=== PATIENT | male | born 1985 | race Caucasian/White ===

== ENCOUNTER 2017-05-02 12:53 | Inpatient (IN) | payer SELFPAY ==
[~2017-05-02] VITALS: Ht 175.3 cm; Wt 101.5 kg
[2017-05-02 13:24] VITALS: BP 124/79; PULSE 83; RESP 18; TEMP 98.1; O2SAT 97
[2017-05-02] MEDS ORDERED: MAGNESIUM HYDROXIDE SUSP 30 ML CUP PO PRN (15:15)
[2017-05-02] MEDS ORDERED: BENZTROPINE MESYLATE 2 MG/2 ML VIAL IM PRN (15:15)
[2017-05-02] MEDS ORDERED: BENZTROPINE MESYLATE 1 MG TAB PO PRN (15:15)
[2017-05-02] MEDS ORDERED: LORazepam 2 MG/ML VIAL IM PRN (15:15)
[2017-05-02] MEDS ORDERED: ALUMINUM/MAGNESIUM/SIMETH 30 ML CUP PO PRN (15:15)
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
[2017-05-02] MEDS ORDERED: POTASSIUM CHLORIDE 20 MEQ CONTROLLED RELEASE TAB PO ONE (17:15)
[2017-05-02] MEDS ORDERED: QUEtiapine FUMARATE 100 MG TAB PO SCH (21:00)
[2017-05-02] MEDS ORDERED: traZODone HCL 50 MG TAB PO PRN (21:00)
[2017-05-02 21:13] LABS: AMPHETAMINE, URINE NEG (NEG); BARBITURATES, URINE NEG (NEG); COCAINE, URINE NEG (NEG)
[2017-05-02] MEDS: LORazepam 1 MG TAB PO PRN (21:44)
[2017-05-02] MEDS: ZOLPIDEM TARTRATE 5 MG TAB PO PRN (21:44)
[2017-05-03 06:15] VITALS: BP 120/70; PULSE 80; RESP 16; TEMP 98.3; O2SAT 97
[2017-05-03] MEDS: NICOTINE 21 MG/24 HR PATCH T-DERMAL SCH (09:00)
[2017-05-03] MEDS: DIVALPROEX DR 500 MG TABEC PO SCH ×2 (09:42→20:10)
[2017-05-03 11:36] LABS: AUTOMATED NEUTROPHIL # 2.5 TH/MM3 (1.8-7.7); BASOPHIL % 0.4 % (0.0-2.0); EOSINOPHIL % 0.9 % (0.0-4.0); HEMATOCRIT 42.9 % (39.0-51.0); HEMO FLAGS DIFF FINAL; LYMPH % 38.3 % (9.0-44.0); LYMPHOCYTE # 1.8 TH/MM3 (1.0-4.8); MEAN CELL VOLUME 82.5 FL (80.0-100.0); MEAN CORPUSCULAR HEMOGLOBIN 28.3 PG (27.0-34.0); MEAN CORPUSCULAR HGB CONC 34.4 % (32.0-36.0); MONO % 7.2 % (0.0-8.0); NEUT % 53.2 % (16.0-70.0); PLATELET COUNT 287 TH/MM3 (150-450); RED CELL DISTRIBUTION WIDTH 13.1 % (11.6-17.2); WHITE BLOOD COUNT 4.7 TH/MM3 (4.0-11.0)
[2017-05-03 11:56] LABS: ALT (GPT) 33 U/L (12-78); ANION GAP 6 MEQ/L (5-15); AST (GOT) 27 U/L (15-37); BICARBONATE 27.8 MEQ/L (21.0-32.0); BLOOD UREA NITROGEN 11 MG/DL (7-18); CHLORIDE 105 MEQ/L (98-107); GLOMERULAR FILTRATION RATE 112 ML/MIN (>89); MAGNESIUM 2.2 MG/DL (1.5-2.5); POTASSIUM 3.4 MEQ/L (3.5-5.1); SODIUM (NA) 139 MEQ/L (136-145)
[2017-05-03 11:59] LABS: ALKALINE PHOSPHATASE 41 U/L (45-117); HDL CHOLESTEROL 21.7 MG/DL (40.0-60.0); LDL CHOLESTEROL 119 MG/DL (0-99); TOTAL BILIRUBIN ADULT 0.4 MG/DL (0.2-1.0)
--- NOTE | 2017-05-03 12:30 | HHI.PYPN ---
Subjective Remarks Patient seen and examined with nurse. Chart reviewed. Case discussed with nursing staff who reports the patient remained seclusive and depressed. On my examination today, patient remains fairly dysphoric. When I ask how he is doing he says "I'm alive." He says that his appetite is poor. He endorses ongoing feelings of worthlessness and anhedonia. He denies any active suicidal ideation. Denies side effects from medications. No physical complaints besides some mild nausea. Review of Systems Except as stated in HPI: all other systems reviewed are Neg Objective Alert: Yes [place]: Person, Place, Date, Situation Mood: Depressed Affect: Restricted Memory Intact: Comment (intact) Hallucinations: Other (no AVH) Delusions: No Delusion Type: Other (no delusions) Suicidal: Ideation (denies SI) Homicidal: Ideation (no HI) Insight/Judgment Fair Remarks Thought process linear. No motor abnormalities noted. Speech remains a little slow with increased speech latency. Grooming and hygiene fair. Labs Test 05/02/17 05/03/17 20:35 11:03 Urine Opiates Screen NEG Urine Barbiturates Screen NEG Urine Amphetamines Screen NEG Urine Benzodiazepines Screen NEG Urine Cocaine Screen NEG Urine Cannabinoids Screen POS White Blood Count 4.7 TH/MM3 Red Blood Count 5.20 MIL/MM3 Hemoglobin 14.7 GM/DL Hematocrit 42.9 % Mean Corpuscular Volume 82.5 FL Mean Corpuscular Hemoglobin 28.3 PG Mean Corpuscular Hemoglobin 34.4 % Concent Red Cell Distribution Width 13.1 % Platelet Count 287 TH/MM3 Mean Platelet Volume 9.1 FL Neutrophils (%) (Auto) 53.2 % Lymphocytes (%) (Auto) 38.3 % Monocytes (%) (Auto) 7.2 % Eosinophils (%) (Auto) 0.9 % Basophils (%) (Auto) 0.4 % Neutrophils # (Auto) 2.5 TH/MM3 Lymphocytes # (Auto) 1.8 TH/MM3 Monocytes # (Auto) 0.3 TH/MM3 Eosinophils # (Auto) 0.0 TH/MM3 Basophils # (Auto) 0.0 TH/MM3 CBC Comment DIFF FINAL Differential Comment Sodium Level 139 MEQ/L Potassium Level 3.4 MEQ/L Chloride Level 105 MEQ/L Carbon Dioxide Level 27.8 MEQ/L Anion Gap 6 MEQ/L Blood Urea Nitrogen 11 MG/DL Creatinine 0.81 MG/DL Estimat Glomerular Filtration 112 ML/MIN Rate Random Glucose 68 MG/DL Calcium Level 8.7 MG/DL Magnesium Level 2.2 MG/DL Total Bilirubin 0.4 MG/DL Aspartate Amino Transf 27 U/L (AST/SGOT) Alanine Aminotransferase 33 U/L (ALT/SGPT) Alkaline Phosphatase 41 U/L Total Protein 7.2 GM/DL Albumin 3.1 GM/DL Triglycerides Level 190 MG/DL Cholesterol Level 179 MG/DL LDL Cholesterol 119 MG/DL HDL Cholesterol 21.7 MG/DL Cholesterol/HDL Ratio 8.24 RATIO Labs reviewed. Urine toxicology positive for cannabinoids. LFTs within normal limits. CBC unremarkable. Vitals/IOs Vital Signs Date Time Temp Pulse Resp B/P Pulse Ox O2 Delivery O2 Flow Rate FiO2 05/03/17 06:15 98.3 80 16 120/70 97 Intake and Output 05/02/17 05/02/17 05/03/17 08:00 16:00 00:00 Intake Total 240 ml Balance 240 ml Assessment & Plan Problem List: (1) Bipolar disorder ICD Code: F31.9 (2) Use of cannabis ICD Code: F12.90 Assessment & Plan Titrate Seroquel to 100 mg at bedtime for mood stabilization. Continue Depakote as ordered and plan to check a Depakote level over the weekend. Hospitalist input noted and appreciated. Continue to monitor on the inpatient unit. Continue other medications and care as ordered. Justification for Cont. Inpt. Medication changes in process. Monitoring for impairments in safety. High risk for decompensation in a less restrictive environment. Discharge Planning Pending psychiatric stabilization. I anticipate patient will require approximately an additional 7 inpatient days at this point. Request HC Surrog/Guard Advoc?: No Problem Qualifiers (1) Bipolar disorder: Qualified Code: F31.4 - Bipolar disorder, current episode depressed, severe, without psychotic features Kody Cho MD May 03, 2017 12:29
[2017-05-03] MEDS ORDERED: POTASSIUM CHLORIDE 10 MEQ CONTROLLED RELEASE TAB PO ONE (13:00)
--- NOTE | 2017-05-03 13:36 | PD.CONS ---
HPI Service [facility] Hospitalists Consult Requested By Reason for Consult Hx of HIV, and FU NSAID overdose Primary Care Physician Unknown Diagnoses: (1) HIV (human immunodeficiency virus infection) (2) Bipolar disorder History of Present Illness Written by MARIA Rivas acting as scribe for [Nguyen] on 05/03/17 at 12:20. 31 y/o with a history of HIV, depression and anxiety was transferred to [place] from [facility] following an overdose of Tylenol and Motrin. Patient states he recently moved here from [place] and was going through some issues and tried to commit suicide. He states he use to take HIV medications in [place] awhile ago but can not afford them. He denies any chest pain, sob, fever or chills. He does complain of having nasal congestion and pain in his ears from a recent cold. Since hospital admission he had had a lack of appetite because nothing tastes good with associated nausea, but states he is drinking fine. Review of Systems Constitutional: COMPLAINS OF: Change in appetite, DENIES: Fever, Chills Ears, nose, mouth, throat: COMPLAINS OF: Running Nose Respiratory: DENIES: Cough, Sputum production, Shortness of breath Cardiovascular: DENIES: Chest pain, Lower Extremity Edema Gastrointestinal: COMPLAINS OF: Nausea, DENIES: Abdominal pain, Vomiting Genitourinary: DENIES: Hematuria, Dysuria Musculoskeletal: DENIES: Back pain, Neck pain Integumentary: DENIES: Rash Neurologic: DENIES: Headache, Localized weakness Past Family Social History Allergies: Coded Allergies: Benadryl (Verified Allergy, Intermediate, 05/02/17) Past Medical History HIV Bipolar Depression Anxiety Past Surgical History Anal abscess drained 2014 Active Ordered Medications Current Medications Medications (Trade) Dose Ordered Sig/Arlene Route Start Time Stop Time Status Last Admin (Ativan) 1 mg Q6H PRN PO 05/02/17 15:15 05/02/17 21:44 (Ativan Inj) 1 mg Q6H PRN IM 05/02/17 15:15 (Cogentin) 1 mg Q12H PRN PO 05/02/17 15:15 (Cogentin Inj) 1 mg Q12H PRN IM 05/02/17 15:15 (Milk Of Magnesia Liq) 30 ml DAILY PRN PO 05/02/17 15:15 (Mag-Al Plus Susp Liq) 30 ml Q6H PRN PO 05/02/17 15:15 (Habitrol 21 Mg Patch.24 Hr) 1 patch DAILY T-DERMAL 05/03/17 09:00 Miscellaneous Information 1 HS T-DERMAL 05/03/17 21:00 (Depakote Dr) 500 mg BID PO 05/03/17 09:00 05/03/17 09:42 (Ambien) 5 mg HS PRN PO 05/02/17 17:00 05/02/17 21:44 (SEROquel) 100 mg HS PO 05/03/17 21:00 Family History Mom: Breast CA Dad: DM, heart disease Social History Tobacco use: 1 PPD Alcohol use: denies Illicit drug use: Denies Physical Exam Vital Signs Vital Signs Date Time Temp Pulse Resp B/P Pulse Ox O2 Delivery O2 Flow Rate FiO2 05/03/17 06:15 98.3 80 16 120/70 97 05/02/17 13:24 98.1 83 18 124/79 97 Physical Exam GENERAL: This is a well-nourished, well-developed patient, in no apparent distress. SKIN: No rashes, ecchymoses or lesions. Cool and dry. HEAD: Atraumatic. Normocephalic. No temporal or scalp tenderness. NECK: Trachea midline. No JVD or lymphadenopathy. CARDIOVASCULAR: Regular rate and rhythm without murmurs, gallops, or rubs. RESPIRATORY: Clear to auscultation. Breath sounds equal bilaterally. No wheezes , rales, or rhonchi. GASTROINTESTINAL: Abdomen soft, non-tender, nondistended. No hepato-splenomegaly , or palpable masses. No guarding. MUSCULOSKELETAL: Extremities without clubbing, cyanosis, or edema. No joint tenderness, effusion, or edema noted. No calf tenderness. NEUROLOGICAL: Awake and alert. Motor and sensory grossly within normal limits. Normal speech. Laboratory Laboratory Tests Test 05/02/17 05/03/17 20:35 11:03 Urine Opiates Screen NEG Urine Barbiturates Screen NEG Urine Amphetamines Screen NEG Urine Benzodiazepines Screen NEG Urine Cocaine Screen NEG Urine Cannabinoids Screen POS White Blood Count 4.7 Red Blood Count 5.20 Hemoglobin 14.7 Hematocrit 42.9 Mean Corpuscular Volume 82.5 Mean Corpuscular Hemoglobin 28.3 Mean Corpuscular Hemoglobin 34.4 Concent Red Cell Distribution Width 13.1 Platelet Count 287 Mean Platelet Volume 9.1 Neutrophils (%) (Auto) 53.2 Lymphocytes (%) (Auto) 38.3 Monocytes (%) (Auto) 7.2 Eosinophils (%) (Auto) 0.9 Basophils (%) (Auto) 0.4 Neutrophils # (Auto) 2.5 Lymphocytes # (Auto) 1.8 Monocytes # (Auto) 0.3 Eosinophils # (Auto) 0.0 Basophils # (Auto) 0.0 CBC Comment DIFF FINAL Differential Comment Sodium Level 139 Potassium Level 3.4 Chloride Level 105 Carbon Dioxide Level 27.8 Anion Gap 6 Blood Urea Nitrogen 11 Creatinine 0.81 Estimat Glomerular Filtration 112 Rate Random Glucose 68 Calcium Level 8.7 Magnesium Level 2.2 Total Bilirubin 0.4 Aspartate Amino Transf 27 (AST/SGOT) Alanine Aminotransferase 33 (ALT/SGPT) Alkaline Phosphatase 41 Total Protein 7.2 Albumin 3.1 Triglycerides Level 190 Cholesterol Level 179 LDL Cholesterol 119 HDL Cholesterol 21.7 Cholesterol/HDL Ratio 8.24 Result Diagram: 05/03/17 1103 05/03/17 1103 Assessment and Plan Problem List: (1) HIV (human immunodeficiency virus infection) ICD Code: Z21 Status: Acute (2) Bipolar disorder ICD Code: F31.9 Status: Acute Assessment and Plan 31 y/o with a history of HIV, depression and anxiety was transferred to [place] from [facility] following an overdose of Tylenol and Motrin. Patient states he recently moved here from [place] and was going through some issues and tried to commit suicide. He states he use to take HIV medications in [place] awhile ago but can not afford them. Bipolar disorder -Managed by psychiatry Tylenol and Motrin overdose Tylenol level at [facility] was 17.5 -Liver enzymes WNL -Cont to monitor HIV, chronic -Patient will need outpatient referral to Health department for medications. He was counseled on the need to be treated for his HIV. He reports that he could not afford his medications. I advised the patient that he would be able to get his medications through the health department if that is the case. DVT prophylaxis: Ambulation This note was transcribed by brenna [Lin Castro]. I, Dr. Preston Cedillo personally performed the history, physical exam, and medical decision making; and confirmed the accuracy of the information in the transcribed note. Authenticated by Dr. Preston Cedillo on 05/03/17 at 1220. Thank you for this consult. Will sign off. Please ensure the patient has a referral to the health department for HIV treatment on discharge. Discussed Condition With Patient Problem Qualifiers (1) Bipolar disorder: Qualified Code: F31.4 - Bipolar disorder, current episode depressed, severe, without psychotic features Lin Castro May 03, 2017 13:35 Preston Cedillo MD May 03, 2017 20:16
[2017-05-03 16:03] LABS: HEMOGLOBIN A1a 0.9 %; HEMOGLOBIN A1b 1.6 %; HEMOGLOBIN Ao 85.9 %; HEMOGLOBIN LA1C 1.8 %; HEMOGLOBIN P3 3.7 %
[2017-05-03 18:00] VITALS: BP 123/75; PULSE 97; RESP 18; TEMP 98; O2SAT 98
[2017-05-03] MEDS ORDERED: REMOVE OLD NICOTINE PATCH T-DERMAL SCH (21:00)
[2017-05-03] MEDS ORDERED: QUEtiapine FUMARATE 100 MG TAB PO SCH (21:00)
[2017-05-04 05:29] VITALS: BP 117/73; PULSE 88; RESP 16; TEMP 98.3; O2SAT 96
[2017-05-04] MEDS: NICOTINE 21 MG/24 HR PATCH T-DERMAL SCH (09:00)
[2017-05-04] MEDS: DIVALPROEX DR 500 MG TABEC PO SCH ×2 (09:58→21:19)
[2017-05-04] MEDS: LORazepam 1 MG TAB PO PRN ×2 (11:32→17:32)
--- NOTE | 2017-05-04 16:02 | HHI.PYPN ---
Subjective Remarks Patient seen and examined with nurse. Chart reviewed. Case discussed with nursing staff who reports that patient had some nausea this morning, possibly due to anxiety, which responded well to Ativan. For me today, the patient remains fairly dysphoric. He does say that he slept very well last night with the Seroquel. He participated in psychotherapy group. Denies suicidal ideation. Agrees that the nausea was likely related to anxiety and responded well to Ativan. Denies side effects from medications. No physical complaints. Starting to talk about wanting discharge but agrees to remain at least overnight for observation; I have recommended he stay at least through the weekend given the need for medication adjustments and the severity of his presenting overdose. Review of Systems Except as stated in HPI: all other systems reviewed are Neg Objective Alert: Yes [place]: Person, Place, Date, Situation Mood: Depressed Affect: Blunted Memory Intact: Comment (remains intact) Hallucinations: Other (no AVH) Delusions: No Delusion Type: Other (no delusional material) Suicidal: Ideation (denies suicidal ideation) Homicidal: Ideation (no homicidal ideation) Insight/Judgment Fair Remarks No motor abnormalities noted. Thought process linear. Grooming and hygiene fair. Speech within normal limits for rate, tone and volume. Labs Test 05/04/17 10:22 Potassium Level 3.5 MEQ/L Labs reviewed. Vitals/IOs Vital Signs Date Time Temp Pulse Resp B/P Pulse Ox O2 Delivery O2 Flow Rate FiO2 05/04/17 05:29 98.3 88 16 117/73 96 Intake and Output 05/03/17 05/03/17 05/03/17 07:59 15:59 23:59 Intake Total 480 ml 240 ml Balance 480 ml 240 ml Assessment & Plan Problem List: (1) Bipolar disorder ICD Code: F31.9 (2) Use of cannabis ICD Code: F12.90 Assessment & Plan Titrate Seroquel to 50/150 mg for mood stabilization. Continue Depakote as ordered. Plan to check a Depakote level beginning of next week. Check a CMP in the morning to follow-up on potassium and LFTs. Continue to monitor on the inpatient unit. Continue other medications and care as ordered. Justification for Cont. Inpt. Monitoring for impairments in safety, so far none noted. Medication changes in process. Discharge Planning Pending psychiatric stabilization. As noted above, I think the patient should stay at least through the weekend and have told him so. However, if he insists on discharge tomorrow, I do not think I would have much basis to initiate a petition for involuntary psychiatric hospitalization at this point given the lack of suicidality on the inpatient unit. Request HC Surrog/Guard Advoc?: No Problem Qualifiers (1) Bipolar disorder: Qualified Code: F31.4 - Bipolar disorder, current episode depressed, severe, without psychotic features Kody Cho MD May 04, 2017 16:02
[2017-05-04 16:04] VITALS: BP 134/86; PULSE 80; RESP 16; TEMP 98.5; O2SAT 99
[2017-05-04] MEDS ORDERED: PILL SPLITTER OTHER PRN (16:30)
[2017-05-04] MEDS ORDERED: QUEtiapine FUMARATE 100 MG TAB PO SCH (21:00)
[2017-05-04] MEDS: ZOLPIDEM TARTRATE 5 MG TAB PO PRN (22:23)
[2017-05-05 05:23] VITALS: BP 109/61; PULSE 94; RESP 16; TEMP 98.4; O2SAT 99
[2017-05-05] MEDS ORDERED: QUEtiapine FUMARATE 100 MG TAB PO SCH (09:00)
[2017-05-05] MEDS: DIVALPROEX DR 500 MG TABEC PO SCH (09:03)
[2017-05-05 10:37] LABS: ANION GAP 8 MEQ/L (5-15); AST (GOT) 30 U/L (15-37); BICARBONATE 28.5 MEQ/L (21.0-32.0); BLOOD UREA NITROGEN 7 MG/DL (7-18); CHLORIDE 103 MEQ/L (98-107); GLOMERULAR FILTRATION RATE 104 ML/MIN (>89); POTASSIUM 3.3 MEQ/L (3.5-5.1); SODIUM (NA) 139 MEQ/L (136-145)
[2017-05-05 10:39] LABS: ALT (GPT) 40 U/L (12-78)
[2017-05-05 10:41] LABS: ALKALINE PHOSPHATASE 43 U/L (45-117); TOTAL BILIRUBIN ADULT 0.5 MG/DL (0.2-1.0)
[2017-05-05] MEDS ORDERED: QUET1TAB8 PO ×2 (11:32)
[2017-05-05] MEDS ORDERED: DIVA500T PO (11:32)
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
== END 2017-05-05 15:30 | disposition home or self-care (01) | DRG 885 ==
LOC: H260 13:13 → EDBD 13:13
PROVIDERS: ADMIT Psychiatry & Neurology Psychiatry; ATTEND Psychiatry & Neurology Psychiatry
DX: F31.4 Bipolar disorder, current episode depressed, severe, without psychotic features (principal); R45.851 Suicidal ideations; F17.210 Nicotine dependence, cigarettes, uncomplicated; Z62.810 Personal history of physical and sexual abuse in childhood; F12.90 Cannabis use, unspecified, uncomplicated; Z21 Asymptomatic human immunodeficiency virus [HIV] infection status; F41.9 Anxiety disorder, unspecified; Z91.5 Personal history of self-harm
CPT/HCPCS: 80053; 80061; 80307; 83036; 83735; 84132; 85025